=== PATIENT | male | born 1990 | race Caucasian/White ===

== ENCOUNTER 2018-03-23 16:00 | Emergency (ER) | payer SELFPAY ==
[~2018-03-23] VITALS: Ht 188 cm; Wt 74.8 kg
--- NOTE | 2018-03-23 16:10 | NUR ---
DR Pacheco at the bedside for MSE.
--- NOTE | 2018-03-23 17:30 | NUR ---
Patient is resting comfortably in bed, awaiting for [facility].
[2018-03-23 17:36] LABS: *BLOOD, URINE NEGATIVE (NEGATIVE); *CLARITY,URINE SLIGHTLY CLOUDY (CLEAR); *COLOR,URINE YELLOW (YELLOW); *KETONES,URINE NEGATIVE (NEGATIVE); *PROTEIN,URINE NEGATIVE (NEGATIVE); *UROBILINOGEN,URINE 0.2 E.U./dl (NORMAL); LEUKOCYTE ESTERASE ,URINE NEGATIVE (NEGATIVE); NITRITE, URINE NEGATIVE (NEGATIVE); PH,URINE 5.5 (5.0-8.0); UGLUCOSE NEGATIVE (NEGATIVE)
[2018-03-23 17:38] LABS: *BILIRUBIN,URIN 1+ (NEGATIVE)
--- NOTE | 2018-03-23 17:39 | NUR ---
[facility] tech at the bedside.
[2018-03-23 17:46] LABS: BACTERIA,URINE NONE SEEN /HPF (NONE SEEN); MUCUS,URINE FEW /LPF (0-FEW); RBC,URINE 0-3 /HPF (0-3); SQUAMOUS EPITHELIAL CELL,UR FEW /HPF (NONE SEEN); WBC,URINE 0-3 /HPF (0-3)
[2018-03-23] MEDS ORDERED: LIDOCAINE HCL 1% 20 ML VIAL ONE (18:11)
[2018-03-23] MEDS ORDERED: CEFTRIAXONE 500 MG VIAL ONE (18:12)
[2018-03-23] MEDS ORDERED: DOXYCYCLINE HYCLATE 100 MG TABLET ONE (18:12)
[2018-03-23] MEDS: CEFTRIAXONE 500 MG VIAL IM ONE (18:16)
[2018-03-23] MEDS: DOXYCYCLINE HYCLATE 100 MG TABLET PO ONE (18:17)
[2018-03-23 18:33] VITALS: BP 112/78
--- NOTE | 2018-03-23 18:33 | NUR ---
Patient discharged to home in stable conditon. Written and verbal after care instructions given. Patient verbalizes understanding of instructions.
== END 2018-03-23 18:34 | disposition home or self-care (01) ==
LOC: ER 16:02
DX: N50.811 Right testicular pain (principal)
CPT/HCPCS: 76870; A4663; J0696; J3490